=== PATIENT | female | born 1990 ===

== ENCOUNTER 2017-01-11 20:18 | Emergency (ER) | payer OTHER ==
[2017-01-11 20:25] VITALS: O2SAT 100
[2017-01-11] MEDS ORDERED: Sodium Chloride 0.9% 1,000 ML IV STA ×4 (20:29→23:59)
--- NOTE | 2017-01-11 20:43 | ED PDOC ---
HPI: General Adult Time Seen by Provider: 01/11/17 20:24 Chief Complaint (Nursing): Fever Chief Complaint (Provider): fever History Per: Patient Additional Complaint(s): 26-year-old female with no past medical history presents to emergency department with fever and body aches for 3 days. Patient states she was seen a few days ago at primary care doctor's office and was told she had urinary tract infection. Her primary doctor recommended a repeat urine culture before starting any meds. Patient is currently not taking any antibiotics for UTI. She also has left ear pain and sore throat that started earlier today. Patient last took ibuprofen at 2 PM. She denies recent travel. Past Medical History Reviewed: Historical Data, Nursing Documentation, Vital Signs Vital Signs: Last Vital Signs Temp 99.0 F 01/11/17 23:15 Pulse 98 H 01/12/17 01:02 Resp 16 01/12/17 01:02 BP 110/68 01/12/17 01:02 Pulse Ox 100 01/12/17 01:02 - Medical History PMH: No Chronic Diseases - Surgical History Surgical History: No Surg Hx - Family History Family History: States: No Known Family Hx - Living Arrangements Living Arrangements: With Family - Social History Current smoker - smoking cessation education provided: No Alcohol: None Drugs: Denies - Home Medications Home Medications: Ambulatory Orders Medication Instructions Recorded Levofloxacin [Levaquin] 500 mg PO DAILY #7 tablet 01/12/17 - Allergies Allergies/Adverse Reactions: Allergies Allergy/AdvReac Type Severity Reaction Status Date / Time No Known Allergies Allergy Verified 01/11/17 20:21 Review of Systems ROS Statement: Except As Marked, All Systems Reviewed And Found Negative Constitutional: Positive for: Fever, Chills, Other (body aches) Cardiovascular: Negative for: Chest Pain Respiratory: Negative for: Cough Gastrointestinal: Negative for: Nausea, Vomiting, Abdominal Pain, Diarrhea Genitourinary Female: Positive for: Dysuria. Negative for: Hematuria, Vaginal Discharge, Vaginal Bleeding Neurological: Negative for: Headache, Dizziness Physical Exam - Reviewed Nursing Documentation Reviewed: Yes Vital Signs Reviewed: Yes - Physical Exam Appears: Positive for: Well Skin: Negative for: Rash Eye Exam: Positive for: Normal appearance, EOMI, PERRL ENT: Positive for: Nasal Congestion, Pharyngeal Erythema, Tonsillar Swelling. Negative for: Tonsillar Exudate Neck: Positive for: Normal Cardiovascular/Chest: Positive for: Regular Rate, Rhythm Respiratory: Positive for: Normal Breath Sounds. Negative for: Wheezing, Respiratory Distress Gastrointestinal/Abdominal: Positive for: Soft. Negative for: Tenderness, Distended, Guarding, Rebound Back: Negative for: L CVA Tenderness, R CVA Tenderness, Vertebral Tenderness Extremity: Negative for: Pedal Edema Neurologic/Psych: Positive for: Alert, Oriented - Laboratory Results Result Diagrams: 01/11/17 20:43 01/11/17 20:43 Urine dip results: Positive for: Blood (large), Nitrate (positive) - ECG O2 Sat by Pulse Oximetry: 100 Pulse Ox Interpretation: Normal Medical Decision Making Medical Decision Makin26 year old with fever and body aches, recently diagnosed with UTI Plan: CBC CMP Urine test Urine dip UA Urine culture VBG with lactate Rapid strep Throat culture Blood culture IVF PO tylenol and motrin Patient is aware of all diagnostic testing results. She feels much better after meds and fluids. Vital signs are markedly improved after fluid boluses administered. Patient is stable for discharge with prescription for Levaquin to treat UTI. Patient was instructed to continue with Tylenol and Motrin for fever control and to drink plenty of fluids. Advise follow-up with primary doctor in 2 -3 days. Patient also aware she can return to ED any time if acutely worse. Disposition - Clinical Impression Clinical Impression: Urinary tract infection - Patient ED Disposition Is Patient to be Admitted: No Counseled Patient/Family Regarding: Studies Performed, Diagnosis, Need For Followup, Rx Given - Disposition Referrals: [facility] [Outside] Disposition: Routine/Home Disposition Time: 00:08 Condition: STABLE Additional Instructions: ALTERNATE TYLENOL EVERY 4 HRS AND ADVIL EVERY 6 HRS FOR FEVER/PAIN. DRINK PLENTY OF FLUIDS. TAKE ANTIBIOTICS DIRECTED TO COMPLETION. FOLLOW UP WITH PRIMARY CARE DOCTOR OR CLINIC IN 2-3 DAYS. Prescriptions: Levofloxacin [Levaquin] 500 mg PO DAILY #7 tablet Instructions: Urinary Tract Infection in Women (ED) Forms: [employer] ([place]) Results - Lab Results Lab Results: 01/11/17 01/11/17 01/11/17 21:50 21:04 20:58 WBC RBC Hgb Hct MCV MCH MCHC RDW Plt Count MPV Neut % (Auto) Lymph % (Auto) Desha % (Auto) Eos % (Auto) Baso % (Auto) Neut # Lymph # Desha # Eos # Baso # Neutrophils % (Manual) Band Neutrophils % Lymphocytes % (Manual) Monocytes % (Manual) Platelet Estimate Anisocytosis (manual) Macrocytosis (manual) pO2 22 L VBG pH 7.36 VBG pCO2 39 L VBG HCO3 20.8 VBG Total CO2 23.2 VBG O2 Sat (Calc) 42.7 VBG Base Excess -3.1 L VBG Potassium 3.3 L Glucose 150 H Lactate 1.7 FiO2 21.0 Sodium 138.0 Potassium Chloride 107.0 Carbon Dioxide Anion Gap BUN Creatinine Est GFR ( Amer) Est GFR (Non-Af Amer) Random Glucose Calcium Total Bilirubin AST ALT Alkaline Phosphatase Total Protein Albumin Globulin Albumin/Globulin Ratio Venous Blood Potassium 3.3 L Urine Color Yellow Urine Clarity Slighty-cloudy Urine pH 6.0 Ur Specific [place] 1.016 Urine Protein 30 Urine Glucose (UA) 50 Urine Ketones Negative Urine Blood Moderate Urine Nitrate Positive H Urine Bilirubin Negative Urine Urobilinogen 0.2-1.0 Ur Leukocyte Esterase Neg Urine RBC (Auto) 2 Urine Microscopic WBC 15 H Ur Squamous Epith Cells 1 Urine Bacteria Rare Grp A Beta Strep Ag Negative 01/11/17 01/11/17 20:43 20:43 WBC 11.9 H RBC 3.87 Hgb 12.0 Hct 36.6 MCV 94.7 MCH 31.1 H MCHC 32.8 L RDW 14.0 Plt Count 211 MPV 8.9 Neut % (Auto) 84.6 H Lymph % (Auto) 5.9 L Desha % (Auto) 9.1 Eos % (Auto) 0.0 Baso % (Auto) 0.4 Neut # 10.1 H Lymph # 0.7 L Desha # 1.1 H Eos # 0.0 Baso # 0.0 Neutrophils % (Manual) 81 H Band Neutrophils % 3 H Lymphocytes % (Manual) 7 L Monocytes % (Manual) 9 Platelet Estimate Normal Anisocytosis (manual) Slight Macrocytosis (manual) Slight pO2 VBG pH VBG pCO2 VBG HCO3 VBG Total CO2 VBG O2 Sat (Calc) VBG Base Excess VBG Potassium Glucose Lactate FiO2 Sodium 139 Potassium 3.4 L Chloride 108 H Carbon Dioxide 19 L Anion Gap 15 BUN 14 Creatinine 0.7 Est GFR ( Amer) > 60 Est GFR (Non-Af Amer) > 60 Random Glucose 121 H Calcium 8.9 Total Bilirubin 0.3 AST 20 ALT 33 Alkaline Phosphatase 59 Total Protein 7.4 Albumin 4.0 Globulin 3.3 Albumin/Globulin Ratio 1.2 Venous Blood Potassium Urine Color Urine Clarity Urine pH Ur Specific [place] Urine Protein Urine Glucose (UA) Urine Ketones Urine Blood Urine Nitrate Urine Bilirubin Urine Urobilinogen Ur Leukocyte Esterase Urine RBC (Auto) Urine Microscopic WBC Ur Squamous Epith Cells Urine Bacteria Grp A Beta Strep Ag
[2017-01-11 20:49] LABS: BASO % 0.4 % (0.0-2.0); HEMATOCRIT 36.6 % (34.0-47.0); LYMPH # 0.7 K/uL (1.0-4.3); LYMPH % 5.9 % (20.0-40.0); MEAN CELL VOLUME 94.7 fl (81.0-99.0); MEAN CORPUSCULAR HEMOGLOBIN 31.1 pg (27.0-31.0); MEAN CORPUSCULAR HGB CONC 32.8 g/dL (33.0-37.0); MEAN PLATELET VOLUME 8.9 fl (7.2-11.7); MONO # 1.1 K/uL (0.0-0.8); MONO % 9.1 % (0.0-10.0); NEUT # 10.1 K/uL (1.8-7.0); NEUT % 84.6 % (50.0-75.0); PLATELET COUNT 211 K/uL (130-400); WHITE BLOOD COUNT 11.9 K/uL (4.8-10.8)
[2017-01-11 21:12] LABS: ALB/GLOB RATIO 1.2 (1.0-2.1); ALKALINE PHOSPHATASE 59 U/L (38-126); ALT/SGPT 33 U/L (9-52); AST/SGOT 20 U/L (14-36); BILIRUBIN,TOTAL 0.3 mg/dl (0.2-1.3); BLOOD UREA NITROGEN 14 mg/dl (7-17); CALCIUM 8.9 mg/dL (8.4-10.2); CARBON DIOXIDE 19 mmol/L (22-30); CHLORIDE 108 mmol/L (98-107); GFR AFRICAN-AMERICAN > 60; GLUCOSE,RANDOM 121 mg/dL (65-105); SODIUM 139 mmol/l (132-148); TOTAL PROTEIN 7.4 G/DL (6.3-8.2)
[2017-01-11 21:14] LABS: VENOUS BLOOD GAS BASE EXCESS -3.1 mmol/L (0.0-2.0); VENOUS BLOOD GAS MODE ROOM AIR; VENOUS BLOOD GAS PCO2 39 mmHg (40-60); VENOUS BLOOD PH 7.36 (7.32-7.43)
[2017-01-11 21:15] LABS: POTASSIUM 3.4 MMOL/L (3.6-5.0)
[2017-01-11 21:34] LABS: NEUTROPHIL 81 % (42-75); TOTAL CELLS COUNTED 100
[2017-01-11 22:07] VITALS: RESP 16
[2017-01-11 22:42] LABS: RBC URINE 2 /hpf (0-3); URINE BACTERIA RARE (<OCC); URINE BILIRUBIN NEGATIVE (NEGATIVE); URINE BLOOD MODERATE (NEGATIVE); URINE COLOR YELLOW (YELLOW); URINE GLUCOSE (UA) 50 mg/dL (Normal); URINE KETONE NEGATIVE (NEGATIVE); URINE LEUKOCYTE ESTERASE NEG Leu/uL (Negative); URINE PROTEIN 30 mg/dL (NEGATIVE); URINE UROBILINOGEN 0.2-1.0 mg/dL (0.2-1.0)
[2017-01-11 22:45] LABS: WBC URINE 15 /hpf (0-5)
[2017-01-11 23:15] VITALS: TEMP 99
[2017-01-12 01:02] VITALS: BP 110/68; PULSE 98
== END 2017-01-12 01:03 | disposition home or self-care (01) ==
LOC: H.ER 20:18
DX: N39.0 Urinary tract infection, site not specified (principal); J02.9 Acute pharyngitis, unspecified
CPT/HCPCS: 80053; 81003; 81025; 82803; 85025; 87040; 87070; 87086; 87430; 96361; 96365; 99284; J0696; J7040